=== PATIENT | female | born 1960 | race Caucasian/White ===

== ENCOUNTER 2019-02-13 12:09 | Emergency (ER) | payer MEDICARE, OTHER ==
[~2019-02-13] VITALS: Ht 147.3 cm; Wt 56.7 kg
[~2019-02-13 12:09] MED LIST: ALBU90OI INH; BIOTIN5000 MC1 SL; Boniva150 MG PO; FOLI1 PO; FURO40 PO; Hair, Skin & N1 EACH PO; LACT10SY; METO50ER PO; MILK THISTLE; ONDA4ODT; ONDA4ODT SL; POTCHL20ER PO; Roxicodone5 MG PO; SPIR50 PO; [UNRECOGNIZED DRUG - OTHER] PR
[2019-02-13] MEDS ORDERED: IBANDRONATE SO150 MG PO (12:31)
[2019-02-13] MEDS ORDERED: Tizanidine HCl2 MG (12:31)
[2019-02-13 12:59] LABS: BASOPHILS ABSOLUTE AUTO 0.04 K/mm3 (0.00-0.23); BASOPHILS PERCENT AUTO 1 % (0-2); EOSINOPHILS ABSOLUTE AUTO 0.06 K/mm3 (0.00-0.68); EOSINOPHILS PERCENT AUTO 1 % (0-6); Hematocrit 44.5 % (33.0-51.0); Hemoglobin 15.9 g/dL (11.5-16.0); IMMATURE GRAN ABSOLUTE AUTO 0.03 K/mm3 (0.00-0.10); IMMATURE GRAN PERCENT AUTO 0 % (0-1); LYMPHOCYTES ABSOLUTE AUTO 1.06 K/mm3 (0.84-5.20); LYMPHOCYTES PERCENT AUTO 13 % (21-46); MONOCYTES ABSOLUTE AUTO 0.87 K/mm3 (0.16-1.47); MONOCYTES PERCENT AUTO 11 % (4-13); Mean Corpuscular HGB 32.7 pg (26.0-34.0); Mean Corpuscular HGB Conc 35.7 g/dL (31.5-36.5); Mean Corpuscular Volume 92 fL (80-100); Mean Platelet Volume 11.7 fL (9.1-12.4); NEUTROPHILS ABSOLUTE AUTO 6.13 K/mm3 (1.96-9.15); NEUTROPHILS PERCENT AUTO 75 % (41-73); Platelet Count 100 K/mm3 (150-400); RDW Coefficient Variation 11.4 % (11.7-14.2); RDW Standard Deviation 38.7 fL (35.1-46.3); Red Blood Cell Count 4.86 M/mm3 (3.80-5.20); White Blood Cell Count 8.19 K/mm3 (4.00-11.30)
[2019-02-13 13:14] LABS: Alanine Aminotransfer (ALT/SGP 37 U/L (12-78); Albumin, Blood 3.7 g/dL (3.4-5.0); Albumin/Globulin Ratio 0.9 (0.8-1.8); Alk Phos 77 U/L (50-136); Anion Gap 12 mmol/L (6-16); Aspartate Aminotrans (AST/SGOT 42 U/L (12-37); Bilirubin, Total 1.4 mg/dL (0.1-1.0); Blood Urea Nitrogen 12 mg/dL (8-24); Bun/Creatinine Ratio 12.3 (12.0-20.0); CO2, Blood 21 mmol/L (21-32); Chloride, Blood 102 mmol/L (98-108); Creatinine, Blood 0.98 mg/dL (0.40-1.00); Glomerular Filtration Rate >60 (60-); Glucose, Blood 161 mg/dL (70-99); Potassium, Blood 3.4 mmol/L (3.5-5.5); Sodium, Blood 135 mmol/L (136-145); Total Protein, Blood 7.7 g/dL (6.4-8.2)
[2019-02-13 13:21] LABS: Influenza A Negative (NEGATIVE); Influenza B Negative (NEGATIVE)
[2019-02-13 14:16] LABS: Source, Urine Clean Catch
[2019-02-13 14:20] LABS: Bilirubin, Urine Neg (Neg); Blood, Urine Neg (Neg); Glucose Qualitative, Urine Neg (Neg); Ketones, Urine Neg (Neg); Leukocyte Esterase, Urine Neg (Neg); Nitrite, Urine Neg (Neg); Protein, Urine Neg (Neg); Specific Gravity, Urine 1.005 (1.003-1.022); Urobilinogen, Urine NORM (Normal)
[2019-02-13 14:22] LABS: Appearance, Urine Clear (Clear); Color, Urine Yellow (P-Yellow)
[2019-02-13] MEDS ORDERED: ONDA4ODT MM (15:20)
[2019-02-13] MEDS ORDERED: Norco 5-325 Ta1 EACH PO (15:20)
== END 2019-02-13 15:30 | disposition home or self-care (01) ==
LOC: ER 12:09
PROVIDERS: Emergency Medicine
DX: K52.9 Noninfective gastroenteritis and colitis, unspecified (principal); G43.909 Migraine, unspecified, not intractable, without status migrainosus; E86.0 Dehydration; Z91.040 Latex allergy status; Z79.899 Other long term (current) drug therapy; F17.200 Nicotine dependence, unspecified, uncomplicated
CPT/HCPCS: 36415; 80053; 81003; 83690; 85025; 87804; 96361; 96374; 96375; 99283-25; J1885; J2550; J7030

== ENCOUNTER 2020-06-29 09:15 | Day surgery (SDC) | payer MEDICARE ==
[~2020-06-29] VITALS: Ht 147.3 cm; Wt 53.1 kg
[~2020-06-29 09:15] MED LIST changes: +ACET500 PO; +ALORA TOP; +CALCIUM CIT 311 EACH PO; +ENULOSE10 GM/156 PO; +IBANDRONATE SO150 MG PO; +MULTIPLE VITAM1 EACH PO; +Norco 5-325 Ta1 EACH PO; +ONDA4ODT MM; +PARO10 PO; +PHENERGAN25 MG PR; +POTCIT10 PO; +SPIR25 PO; +Tizanidine HCl2 MG; +Ventolin/Prove6.7 GM; +Vitamin B Comple1 EA PO
[2020-06-29] MEDS ORDERED: ONDA4 PO (09:48)
[2020-06-29] MEDS ORDERED: CALCIUM CIT 311 EACH PO (09:48)
[2020-06-29] MEDS ORDERED: Milk Thistle175 M1 PO (09:48)
--- NOTE | 2020-06-29 10:18 | NUR ---
06/29/20 1018 Miguel Perkins CALL LIGHT WITHIN REACH
== END 2020-06-29 12:41 | disposition home or self-care (01) ==
LOC: ORSCSDS 09:15
PROVIDERS: Student in an Organized Health Care Education/Training Program
PROC: 0DBM8ZX Excision of Descending Colon, Via Natural or Artificial Opening Endoscopic, Diagnostic (ICD-10-PCS; principal; 2020-06-29 11:15)
PROC: 0DBL8ZX Excision of Transverse Colon, Via Natural or Artificial Opening Endoscopic, Diagnostic (ICD-10-PCS; principal; 2020-06-29 11:15)
PROC: 0DB78ZX Excision of Stomach, Pylorus, Via Natural or Artificial Opening Endoscopic, Diagnostic (ICD-10-PCS; principal; 2020-06-29 11:15)
PROC: 0DBN8ZX Excision of Sigmoid Colon, Via Natural or Artificial Opening Endoscopic, Diagnostic (ICD-10-PCS; principal; 2020-06-29 11:15)
PROC: 0DB48ZX Excision of Esophagogastric Junction, Via Natural or Artificial Opening Endoscopic, Diagnostic (ICD-10-PCS; principal; 2020-06-29 11:15)
DX: K74.60 Unspecified cirrhosis of liver (principal); D12.4 Benign neoplasm of descending colon; D12.3 Benign neoplasm of transverse colon; Z79.899 Other long term (current) drug therapy; K57.30 Diverticulosis of large intestine without perforation or abscess without bleeding; K64.8 Other hemorrhoids; K64.4 Residual hemorrhoidal skin tags; F17.210 Nicotine dependence, cigarettes, uncomplicated; I10 Essential (primary) hypertension
CPT/HCPCS: 88305; 88342; J2704; J7040; J7120

== ENCOUNTER 2020-07-24 17:46 | Emergency (ER) | payer MEDICARE ==
[~2020-07-24] VITALS: Ht 147.3 cm; Wt 49.0 kg
[~2020-07-24 17:46] MED LIST changes: +Milk Thistle175 M1 PO; +ONDA4 PO
[2020-07-24 18:27] LABS: BASOPHILS ABSOLUTE AUTO 0.07 K/mm3 (0.00-0.23); BASOPHILS PERCENT AUTO 1 % (0-2); EOSINOPHILS ABSOLUTE AUTO 0.07 K/mm3 (0.00-0.68); EOSINOPHILS PERCENT AUTO 1 % (0-6); Hematocrit 48.6 % (33.0-51.0); Hemoglobin 17.4 g/dL (11.5-16.0); IMMATURE GRAN ABSOLUTE AUTO 0.08 K/mm3 (0.00-0.10); IMMATURE GRAN PERCENT AUTO 1 % (0-1); LYMPHOCYTES ABSOLUTE AUTO 1.24 K/mm3 (0.84-5.20); LYMPHOCYTES PERCENT AUTO 13 % (21-46); MONOCYTES ABSOLUTE AUTO 1.28 K/mm3 (0.16-1.47); MONOCYTES PERCENT AUTO 14 % (4-13); Mean Corpuscular HGB 32.5 pg (26.0-34.0); Mean Corpuscular HGB Conc 35.8 g/dL (31.5-36.5); Mean Corpuscular Volume 91 fL (80-100); Mean Platelet Volume 11.1 fL (9.1-12.4); NEUTROPHILS ABSOLUTE AUTO 6.63 K/mm3 (1.96-9.15); NEUTROPHILS PERCENT AUTO 71 % (41-73); Platelet Count 258 K/mm3 (150-400); RDW Coefficient Variation 12.1 % (11.7-14.2); RDW Standard Deviation 39.8 fL (35.1-46.3); Red Blood Cell Count 5.35 M/mm3 (3.80-5.20); White Blood Cell Count 9.37 K/mm3 (4.00-11.30)
[2020-07-24 19:00] LABS: Albumin, Blood 3.8 g/dL (3.4-5.0); Albumin/Globulin Ratio 0.7 (0.8-1.8); Bilirubin, Total 1.1 mg/dL (0.1-1.0); Bun/Creatinine Ratio 9.3 (12.0-20.0); Calcium, Blood 9.5 mg/dL (8.5-10.1); Creatinine, Blood 1.08 mg/dL (0.40-1.00); Globulin, Blood 5.2 g/dL (2.2-4.0); Potassium, Blood 2.6 mmol/L (3.5-5.5)
[2020-07-24 19:16] LABS: Troponin I 0.046 ng/mL (0.000-0.040)
== END 2020-07-24 22:15 | disposition home or self-care (01) ==
LOC: ER 17:46
PROVIDERS: Physician Assistant
DX: F07.81 Postconcussional syndrome (principal); F41.9 Anxiety disorder, unspecified; E87.6 Hypokalemia; R07.9 Chest pain, unspecified; M54.2 Cervicalgia; R20.0 Anesthesia of skin; R00.0 Tachycardia, unspecified; R06.02 Shortness of breath; R79.89 Other specified abnormal findings of blood chemistry; R94.31 Abnormal electrocardiogram [ECG] [EKG]; K74.69 Other cirrhosis of liver; B19.20 Unspecified viral hepatitis C without hepatic coma; G47.00 Insomnia, unspecified; F17.200 Nicotine dependence, unspecified, uncomplicated; Z79.899 Other long term (current) drug therapy; Z91.040 Latex allergy status; Z91.09 Other allergy status, other than to drugs and biological substances; W18.39XA Other fall on same level, initial encounter; W22.8XXA Striking against or struck by other objects, initial encounter
CPT/HCPCS: 36415; 70450; 71046; 72125; 80053; 84443; 84484; 85025; 93005; 93010; 96374; 96375; 99285-25; A9270; J0780; J1885; J2060; J2405; J7030